=== PATIENT | female | born 1990 | race Caucasian/White ===

== ENCOUNTER 2018-07-16 13:22 | Emergency (ER) | payer BC, OTHER ==
[~2018-07-16] VITALS: Wt 63.6 kg
[2018-07-16 13:26] VITALS: BP 121/64; PULSE 90; RESP 18
[2018-07-16] MEDS ORDERED: IBUPROFEN 600 MG TAB PO ONE (15:00)
[2018-07-16] MEDS ORDERED: IBUP-1542 PO (15:47)
[2018-07-16] MEDS ORDERED: ACET1TAB40 PO (15:47)
--- NOTE | 2018-07-16 16:02 | ERD ---
ER Documentation Chief Complaint Chief Complaint LEFT PINKY TOE PAIN AND MILD SWELLING FROM JAMMING IT THIS MORNING HPI 27-year-old female accidentally kicked an object this morning has left fifth toe pain possible deformity. She has no bleeding or lacerations. ROS All systems reviewed and are negative except as per history of present illness. Medications Home Meds Active Scripts Acetaminophen with Codeine (Acetaminophen-Cod #3 Tablet) 1 Each Tablet, 1 TAB PO Q6H PRN for PAIN, #10 TAB Prov:GLADYS MUÑOZ MD 07/16/18 Ibuprofen* (Motrin*) 600 Mg Tab, 600 MG PO Q6, #20 TAB Prov:GLADYS MUÑOZ MD 07/16/18 Allergies Allergies: Coded Allergies: No Known Allergy (Verified Allergy, Unknown, 10/02/08) PMhx/Soc Medical and Surgical Hx: pt denies Medical Hx, pt denies Surgical Hx Hx Alcohol Use: No Hx Substance Use: No Hx Tobacco Use: No FmHx Family History: No diabetes, No coronary disease, No other Physical Exam Vitals Vital Signs Date Temp Pulse Resp B/P (MAP) Pulse Ox O2 O2 Flow FiO2 Time Delivery Rate 07/16/18 97.8 90 18 121/64 98 13:26 (83) Physical Exam Const: No acute distress Head: Atraumatic Eyes: Normal Conjunctiva ENT: Normal External Ears, Nose and Mouth. Neck: Full range of motion. No meningismus. Resp: Clear to auscultation bilaterally Cardio: Regular rate and rhythm, no murmurs Abd: Soft, non tender, non distended. Normal bowel sounds Skin: No petechiae or rashes Back: No midline or flank tenderness Ext: No cyanosis, or edema. slight lateral deformity of the left fifth toe. No erythema no bleeding. Neur: Awake and alert Psych: Normal Mood and Affect Results 24 hrs Current Medications Medications Dose Sig/Jose Start Time Status Last (Trade) Ordered Route PRN Stop Time Admin Dose Reason Admin Ibuprofen 600 mg ONCE ONCE 07/16/18 DC 07/16/18 (Motrin) PO 15:00 15:05 07/16/18 15:02 Procedures/MDM X-ray left fifth toe 2V Interpreted by me: Bones: No fracture Joints: No dislocation Foreign Body: None [id number] right left fifth toe x-ray. Was vamshi taped. Patient was placed in the left lower extremity postop she was neurovascular intact after shoe. She is given crutches with crutch training. Patient presents with left fifth toe pain after jamming it this morning. She does have a slight deformity on the x-ray read as normal by radiologist. We will vamshi tape toe with a fulcrum to replace to anatomic position. She will be discharged home with primary care and orthopedic follow-up patient return sooner for fevers, redness, new worsening symptoms. No signs to suggest septic arthritis, tenosynovitis, ischemia, deficits. Departure Diagnosis: Primary Impression: Injury of toe Encounter type: initial encounter Laterality: left Qualified Codes: S99.922A - Unspecified injury of left foot, initial encounter Condition: Stable Patient Instructions: Sprain Toe Referrals: JONATAN HUERTAS (PCP) Additional Instructions: X-ray read as normal. Repeat x-ray in 10 days for persistent pain. Recheck sooner for fevers, redness, new worsening symptoms. Ice and elevate at home. GLADYS MUÑOZ MD Jul 16, 2018 16:02
== END 2018-07-16 16:22 | disposition home or self-care (01) ==
LOC: FTE 13:22
DX: S99.922A Unspecified injury of left foot, initial encounter (principal); W22.8XXA Striking against or struck by other objects, initial encounter; Y92.9 Unspecified place or not applicable
CPT/HCPCS: 73660; Z7502; Z7610